=== PATIENT | male | born 1990 | race Two or more races ===

== ENCOUNTER 2016-07-01 08:09 | Emergency (ER) | payer SELFPAY ==
[~2016-07-01] VITALS: Ht 172.7 cm; Wt 117.9 kg
[2016-07-01] MEDS ORDERED: NKM (08:24)
[2016-07-01] MEDS ORDERED: Ketorolac 60mg Inj IM ONE (09:00)
--- NOTE | 2016-07-01 10:10 | Emergency Room Report ---
History of Present Illness General Chief Complaint: Lower Extremity Injury Source: Patient Present Illness HPI The patient states that he was playing basketball across the street and came down on his right leg after jumping up and had sudden pain in his right knee. He states the pain is much worse with movement or weightbearing. He has no other injuries or complaints. Allergies: Coded Allergies: No Known Allergies (Unverified , 07/01/16) Patient History Past Medical History: none Past Surgical History: none Social History: Denies: alcohol use, drug use, smoking Reviewed Nursing Documentation: PMH: Agreed, PSxH: Agreed Nursing Documentation-PMH Past Medical History: No Stated History Review of Systems All Other Systems: negative except mentioned in HPI Physical Exam Vital Signs Date Time Temp Pulse Resp B/P Pulse Ox O2 Delivery O2 Flow Rate FiO2 07/01/16 08:19 98.1 100 23 133/63 98 Room Air Sp02 EP Interpretation: reviewed, normal General Appearance: no apparent distress, alert, GCS 15, non-toxic Head: normocephalic, atraumatic Eyes: bilateral eye PERRL, bilateral eye normal inspection ENT: hearing grossly normal, normal pharynx, no angioedema, normal voice Neck: full range of motion, supple/symm/no masses Respiratory: chest non-tender, lungs clear, normal breath sounds, speaking full sentences Cardiovascular #1: regular rate, rhythm, no edema Rectal: deferred Musculoskeletal: back normal, swelling - TTP and swelling over the lateral R. leg proximal TIB/FIB. Compartment soft. Neurologic: alert, oriented x3, responsive, motor strength/tone normal, sensory intact, speech normal Psychiatric: judgement/insight normal, memory normal, mood/affect normal, no suicidal/homicidal ideation Skin: normal color, no rash, warm/dry, well hydrated Medical Decision Making Diagnostic Impression: Primary Impression: Tibial plateau fracture, right ER Course This patient has a displaced tibial plateau fracture on the right. He does have swelling along the right lateral compartment there is no evidence of compartment syndrome on exam. The patient only has pain with movement and does not have pain with toe movement and passive flexion of the foot. I did educate the patient extensively on the signs and symptoms of compartment syndrome. He was placed in a long-leg splint. He was instructed to keep the leg elevated and be nonweightbearing. He was given crutches. He states that he has ibuprofen at home and will use this for swelling. I did discuss the case with the on-call orthopedist Dr. Gaytan and he confirmed that this patient will need surgical fixation in the next 48-72 hours. I discussed this with the patient and because he does not have insurance, he will go straight over to [facility] and try to get orthopedic evaluation. I instructed the patient on closer return precautions and the importance of having urgent surgical repair in the next few days. He was given return precautions and close followup instructions. Other X-Ray Diagnostic Results Other X-Ray Diagnostic Results : X-Ray Ordered: R. Knee, R. TIB/FIB EP Interpretation: Yes Findings: no fractures, no dislocation Number of Views: 4 Other Impression Right lateral depressed and displaced tibia fracture. See official reports. Last Vital Signs Date Time Temp Pulse Resp B/P Pulse Ox O2 Delivery O2 Flow Rate FiO2 07/01/16 08:19 98.1 100 23 133/63 98 Room Air Status: improved Disposition: HOME, SELF-CARE Condition: Stable Referrals: NOT CHOSEN [facility]/MD,REFERRING (PCP) Additional Instructions: He will need surgery on your her right knee within the next 48-72 hours. Please followup with an orthopedic surgeon. SUJEY DE LA PAZ D.O. July 01, 2016 10:10
[2016-07-01 11:03] VITALS: BP 126/83
--- NOTE | 2016-07-01 11:31 | Diagnostic Imaging Report ---
Indication: Pain Comparison: None Findings: Two views of the right tibia and fibula were obtained. There is evidence of a fracture involving the lateral tibial plateau. The fracture is intra-articular. Soft tissue swelling noted. Impression: Acute fracture of the lateral tibial plateau
--- NOTE | 2016-07-01 12:18 | Diagnostic Imaging Report ---
Indication: Pain 3 views of the right knee were obtained. Findings: Acute fracture involving the lateral tibial plateau demonstrated. The fractures were: Extensive through the joint space. There is fat fluid level in the joint space. Impression: Acute lateral tibial plateau fracture with lipohemarthrosis.
== END 2016-07-01 11:38 | disposition home or self-care (01) ==
LOC: EMR 08:35
DX: S82.141A Displaced bicondylar fracture of right tibia, initial encounter for closed fracture (principal); Y93.67 Activity, basketball; Y92.89 Other specified places as the place of occurrence of the external cause
CPT/HCPCS: 96372; 99284